=== PATIENT | female | born 1975 | race Caucasian/White ===

== ENCOUNTER 2016-11-10 03:58 | Emergency (ER) | payer MEDICAID ==
[~2016-11-10 03:58] MED LIST: HYDR-3533 PO; OMEP20TA PO; VENL37.5 PO
[2016-11-10 04:01] VITALS: BP 153/91; PULSE 102; RESP 16; TEMP 98.4; O2SAT 99
[2016-11-10] MEDS ORDERED: OMEP20TA PO (04:25)
[2016-11-10] MEDS ORDERED: KETOROLAC TROMETHAMINE 30 MG/ML (IVP) VIAL IV PUSH ONE (04:45)
[2016-11-10] MEDS ORDERED: SODIUM CHLOR 0.9% 1000 ML INJ 1,000 ML IV ONE (04:45)
[2016-11-10] MEDS ORDERED: ONDANSETRON HCL 4 MG/2 ML VIAL IV PUSH ONE (04:45)
[2016-11-10 04:53] LABS: BASOPHIL # 0.1 TH/MM3 (0-0.2); BASOPHIL % 0.7 % (0.0-2.0); EOSINOPHIL # 0.4 TH/MM3 (0-0.4); EOSINOPHIL % 3.8 % (0.0-4.0); HEMO FLAGS DIFF FINAL; LYMPH % 35.7 % (9.0-44.0); MEAN CELL VOLUME 81.8 FL (80.0-100.0); MEAN CORPUSCULAR HEMOGLOBIN 27.1 PG (27.0-34.0); MEAN CORPUSCULAR HGB CONC 33.2 % (32.0-36.0); MONO % 7.1 % (0.0-8.0); NEUT % 52.7 % (16.0-70.0); PLATELET COUNT 345 TH/MM3 (150-450); RED BLOOD COUNT 4.89 MIL/MM3 (4.00-5.30); WHITE BLOOD COUNT 11.3 TH/MM3 (4.0-11.0)
[2016-11-10 05:15] LABS: ALT (GPT) 19 U/L (10-53); ANION GAP 8 MEQ/L (5-15); AST (GOT) 16 U/L (15-37); BICARBONATE 25.3 MEQ/L (21.0-32.0); BLOOD UREA NITROGEN 10 MG/DL (7-18); CHLORIDE 106 MEQ/L (98-107); GLOMERULAR FILTRATION RATE 69 ML/MIN (>89); POTASSIUM 3.6 MEQ/L (3.5-5.1); SODIUM (NA) 139 MEQ/L (136-145)
--- NOTE | 2016-11-10 05:15 | RADRPT ---
EXAM DATE/TIME: 11/10/2016 05:00 [place] COMPARISON: No previous studies available for comparison. INDICATIONS : Right lower quadrant pain radiating to back. ORAL CONTRAST: No oral contrast ingested. RADIATION DOSE: 14.24 CTDIvol (mGy) MEDICAL HISTORY : Hypertension. SURGICAL HISTORY : Appendectomy. Cholecystectomy. ENCOUNTER: Initial ACUITY: 1 week PAIN SCALE: 9/10 LOCATION: Right lower quadrant TECHNIQUE: Volumetric scanning of the abdomen and pelvis was performed. Using automated exposure control and ad justment of the mA and/or kV according to patient size, radiation dose was kept as low as reasonably achievable to obtain optimal diagnostic quality images. FINDINGS: LOWER LUNGS: The visualized lower lungs are clear. LIVER: Homogeneous density without lesion. There is no dilation of the biliary tree. Status post cholecyste ctomy. SPLEEN: Normal size without lesion. PANCREAS: Within normal limits. KIDNEYS: Normal in size and shape. There is no mass, stone, or hydronephrosis. ADRENAL GLANDS: Within normal limits. VASCULAR: There is no aortic aneurysm. BOWEL/MESENTERY: The stomach, small bowel, and colon demonstrate no acute abnormality. There is no free intraperitone al air or fluid. There are mild postsurgical changes in the right lower quadrant consistent with the known appendectomy. No oral contrast was given limiting sensitivity. ABDOMINAL WALL: Within normal limits. RETROPERITONEUM: There is no lymphadenopathy. BLADDER: No wall thickening or mass. REPRODUCTIVE: Within normal limits. INGUINAL: There is no lymphadenopathy or hernia. MUSCULOSKELETAL: Within normal limits for patient age. CONCLUSION: 1. Status post cholecystectomy. 2. Mild postsurgical changes consistent with the known appendectomy. 3. Unremarkable bowel gas pattern with no inflammatory change or obstruction. 4. The kidneys are unremarkable in appearance with no renal calculi or obstruction. Glenn Ely MD on November 10, 2016 at 5:11 Board Certified Radiologist. This report was verified electronically.
[2016-11-10 05:17] LABS: ALKALINE PHOSPHATASE 83 U/L (45-117); TOTAL BILIRUBIN ADULT 0.4 MG/DL (0.2-1.0)
[2016-11-10 05:27] LABS: BACTERIA, URINE FEW /hpf; BLOOD, URINE TRACE (NEG); COMMENT (UR) CULTURE INDICATED; CULTURE IF INDICATED CULTURE INDICATED; GLUCOSE,URINE NEG (NEG); KETONE, URINE NEG (NEG); MUCUS URINE FEW /lpf (OCC); NITRITE,URINE NEG (NEG); PH, URINE 5.5 (5.0-8.5); SQUAMOUS EPITHELIAL CELL URINE 4 /hpf (0-5); URINE COLOR YELLOW (YELLW/STRAW)
[2016-11-10] MEDS ORDERED: CIPR-9 PO (05:33)
--- NOTE | 2016-11-10 05:34 | PD ---
HPI Chief Complaint: Abdominal Pain Time Seen by Provider: 04:26 Travel History International Travel<30 days: No Contact w/Intl Traveler<30days: No Traveled to known affect area: No History of Present Illness HPI Patient is a 41-year-old female comes in complaining of lower abdominal pain. She says it has been going on since Friday. She says she has had a lot of urinary frequency and urgency. She denies dysuria or hematuria. She denies any vaginal discharge. She says the pain wraps around into her back, more on the right side of the left. She says she felt like she had a fever yesterday. She did not take her temperature at that time. She denies nausea or vomiting. FORMERLY [facility] Past Medical History Anemia: Yes Depression: Yes Cardiovascular Problems: Yes (HTN - NO MEDICATIONS) Cerebrovascular Accident: Yes (SELF DIAGNOSED) Diminished Hearing: No Immunizations Current: Yes ?: Not : 3 Para: 2 Miscarriage: 1 Past Surgical History Appendectomy: Yes Cholecystectomy: Yes Social History Alcohol Use: Yes (WEEKLY) Tobacco Use: Yes (1/2 PPD) Substance Use: No (DENIES) Allergies-Medications (Allergen,Severity, Reaction): Coded Allergies: No Known Allergies (Unverified , 11/10/16) Reported Meds & Prescriptions Reported Meds & Active Scripts Active Reported Omeprazole 20 Mg Tab 20 Mg PO DAILY Review of Systems Except as stated in HPI: all other systems reviewed are Neg General / Constitutional: Positive: Fever Eyes: No: Diploplia, Blurred Vision HENT: No: Headaches, Lightheadedness Cardiovascular: No: Chest Pain or Discomfort Respiratory: No: Shortness of Breath Gastrointestinal: Positive: Abdominal Pain, No: Nausea, Vomiting Genitourinary: Positive: Urgency, Frequency, No: Dysuria Musculoskeletal: No: Weakness Skin: No Rash, No Change in Pigmentation Neurologic: No: Weakness, Dizziness Physical Exam Narrative GENERAL: Awake and alert, in no acute distress. SKIN: Focused skin assessment warm/dry. HEAD: Atraumatic. Normocephalic. EYES: Pupils equal and round. No scleral icterus. ENT: No nasal bleeding or discharge. Mucous membranes pink and moist. NECK: Trachea midline. No JVD. CARDIOVASCULAR: Regular rate and rhythm. No murmur appreciated. RESPIRATORY: No accessory muscle use. Clear to auscultation. Breath sounds equal bilaterally. GASTROINTESTINAL: Abdomen soft, nondistended. Tender to palpation of the suprapubic area and right lower quadrant. No rebound or guarding. Right CVA tenderness. MUSCULOSKELETAL: No obvious deformities. No clubbing. No cyanosis. No edema. NEUROLOGICAL: Awake and alert. No obvious cranial nerve deficits. Motor grossly within normal limits. Normal speech. PSYCHIATRIC: Appropriate mood and affect; insight and judgment normal. Data Data Last Documented VS Vital Signs Date Time Temp Pulse Resp B/P Pulse Ox O2 Delivery O2 Flow Rate FiO2 11/10/16 04:01 98.4 102 16 153/91 99 Room Air Orders Complete Blood Count With Diff (11/10/16 04:36) Comprehensive Metabolic Panel (11/10/16 04:36) Urinalysis - C+S If Indicated (11/10/16 04:36) Ed Urine Pregnancytest Poc (11/10/16 04:36) Ct Abd/Pel W/O Iv Contrast (11/10/16 ) Sodium Chlor 0.9% 1000 Ml Inj (Ns 1000 M (11/10/16 04:45) Ondansetron Inj (Zofran Inj) (11/10/16 04:45) Ketorolac Inj (Toradol Inj) (11/10/16 04:45) Iv Access Insert/Monitor (11/10/16 04:36) Urine Culture (11/10/16 04:40) Labs Laboratory Tests Test 11/10/16 04:40 White Blood Count 11.3 TH/MM3 Red Blood Count 4.89 MIL/MM3 Hemoglobin 13.3 GM/DL Hematocrit 40.0 % Mean Corpuscular Volume 81.8 FL Mean Corpuscular Hemoglobin 27.1 PG Mean Corpuscular Hemoglobin 33.2 % Concent Red Cell Distribution Width 17.0 % Platelet Count 345 TH/MM3 Mean Platelet Volume 6.9 FL Neutrophils (%) (Auto) 52.7 % Lymphocytes (%) (Auto) 35.7 % Monocytes (%) (Auto) 7.1 % Eosinophils (%) (Auto) 3.8 % Basophils (%) (Auto) 0.7 % Neutrophils # (Auto) 6.0 TH/MM3 Lymphocytes # (Auto) 4.0 TH/MM3 Monocytes # (Auto) 0.8 TH/MM3 Eosinophils # (Auto) 0.4 TH/MM3 Basophils # (Auto) 0.1 TH/MM3 CBC Comment DIFF FINAL Differential Comment Urine Color YELLOW Urine Turbidity HAZY Urine pH 5.5 Urine Specific [place].021 Urine Protein TRACE mg/dL Urine Glucose (UA) NEG mg/dL Urine Ketones NEG mg/dL Urine Occult Blood TRACE Urine Nitrite NEG Urine Bilirubin NEG Urine Urobilinogen LESS THAN 2.0 MG/DL Urine Leukocyte Esterase MOD Urine RBC 3 /hpf Urine WBC 20 /hpf Urine WBC Clumps RARE Urine Squamous Epithelial 4 /hpf Cells Urine Bacteria FEW /hpf Urine Mucus FEW /lpf Microscopic Urinalysis Comment CULTURE INDICATED Sodium Level 139 MEQ/L Potassium Level 3.6 MEQ/L Chloride Level 106 MEQ/L Carbon Dioxide Level 25.3 MEQ/L Anion Gap 8 MEQ/L Blood Urea Nitrogen 10 MG/DL Creatinine 0.90 MG/DL Estimat Glomerular Filtration 69 ML/MIN Rate Random Glucose 125 MG/DL Calcium Level 8.9 MG/DL Total Bilirubin 0.4 MG/DL Aspartate Amino Transf 16 U/L (AST/SGOT) Alanine Aminotransferase 19 U/L (ALT/SGPT) Alkaline Phosphatase 83 U/L Total Protein 6.9 GM/DL Albumin 3.5 GM/DL [facility] Medical Decision Making Medical Screen Exam Complete: Yes Emergency Medical Condition: Yes Medical Record Reviewed: Yes Differential Diagnosis UTI versus pyelonephritis versus renal stone Narrative Course Patient is a 41-year-old female comes in complaining of lower abdominal pain as well as urinary urgency and frequency. Exam shows lower abdominal pain with no rebound or guarding. IV established, labs sent. Labs show a slight elevation in white blood cell count 11.3. Urinalysis is positive for infection. CT abdomen and pelvis performed shows no acute abnormalities. Patient given IV fluids, Toradol. She will be discharged home with prescription for Cipro for 7 days to treat the UTI, which is having symptoms of pyelonephritis. Advised follow-up with her primary care doctor. Advised to return to the ED as needed for any worsening symptoms. Diagnosis Primary Impression: UTI (urinary tract infection) Qualified Code: N30.00 - Acute cystitis without hematuria Patient Instructions: General Instructions, Urinary Tract Infection in Women ( ED) Additional Instructions: Take all of your antibiotic. Drink plenty of fluids. Follow up with your doctor. Return to the ED as needed for any worsening symptoms. Scripts Ciprofloxacin (Cipro)500 Mg Kua445 Mg PO BID 7 Days Ref 0 Prov:Gershen,Princess B MD 11/10/16 Disposition: 01 DISCHARGE HOME Condition: Stable Princess Wu MD Nov 10, 2016 05:33
[2016-11-10 05:50] VITALS: RESP 16
== END 2016-11-10 05:51 | disposition home or self-care (01) ==
LOC: NEPC 03:58
DX: N39.0 Urinary tract infection, site not specified (principal); I10 Essential (primary) hypertension; F17.200 Nicotine dependence, unspecified, uncomplicated; A49.8 Other bacterial infections of unspecified site
CPT/HCPCS: 74176; 80053; 81001; 84703; 85025; 87077; 87086; 87186; 96361; 96374; 96375; 99285; J1885; J2405; J7030